=== PATIENT | male | born 1935 | race Caucasian/White ===

== ENCOUNTER 2017-11-15 14:56 | Emergency (ER) | payer OTHER ==
[~2017-11-15] VITALS: Ht 172.7 cm; Wt 86.2 kg
[2017-11-15] MEDS ORDERED: CARDIZEM CD180 M1 (15:52)
[2017-11-15] MEDS ORDERED: HYZAAR 100-12.1 EACH (15:52)
[2017-11-15] MEDS ORDERED: JANUMET 50-1,01 EACH (15:52)
[2017-11-15] MEDS ORDERED: TOPROL XL25 M1 (15:52)
[2017-11-15] MEDS ORDERED: AZOPT10 ML (15:53)
[2017-11-15] MEDS ORDERED: ASPIR 8181 MG (15:53)
[2017-11-15] MEDS ORDERED: NEURONTIN300 MG (15:53)
== END 2017-11-15 23:17 | disposition home or self-care (01) ==
LOC: ER 14:56 → EDBD 15:10 → ER 15:10
DX: K52.9 Noninfective gastroenteritis and colitis, unspecified (principal)